=== PATIENT | female | born 2000 | race Caucasian/White ===

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

== ENCOUNTER 2021-11-14 13:28 | Emergency (ER) | payer BC ==
[~2021-11-14] VITALS: Ht 157.5 cm; Wt 54.4 kg
[2021-11-14 13:40] VITALS: BP_SYST 123
--- NOTE | 2021-11-14 14:09 | NUR ---
Pt brought by self, A&Ox4, pt presents to ER with neck pain/ pt states she was reaching for an object and hit the neck with the corner of a vanity skin pink and warm, cap refill <3,
--- NOTE | 2021-11-14 14:27 | NUR ---
Dr Ramirez evaluating patient in the triage room
[2021-11-14 15:38] VITALS: BP_SYST 124
--- NOTE | 2021-11-14 15:38 | NUR ---
Patient given written and verbal discharge instructions and verbalizes understanding. ER MD discussed with patient the results and treatment provided. Patient in stable condition. ID arm band removed. NO Rx given. Patient educated on pain management and to follow up with PMD. Pain Scale 0/10. Opportunity for questions provided and answered. Medication side effect fact sheet provided.
== END 2021-11-14 15:38 | disposition home or self-care (01) ==
LOC: SED 13:28
DX: S09.90XA Unspecified injury of head, initial encounter (principal); W18.39XA Other fall on same level, initial encounter; Y93.89 Activity, other specified; Y92.89 Other specified places as the place of occurrence of the external cause; Y99.8 Other external cause status
CPT/HCPCS: 70450-TC; 76376; 99284

== ENCOUNTER 2023-06-08 16:17 | Emergency (ER) | payer BC ==
[~2023-06-08] VITALS: Ht 162.6 cm; Wt 57.2 kg
[2023-06-08 16:25] VITALS: BP_SYST 144; PULSE 85; RESP 18; TEMP 98.3; O2SAT 98
[2023-06-08 17:02] LABS: BASOPHILS % (AUTO) 0.2 % (0.0-2.0); EOSINOPHILS % (AUTO) 0.7 % (0.0-4.0); HEMATOCRIT 39.6 % (36-48); HEMOGLOBIN 12.8 g/dL (12.0-16.0); LYMPHOCYTES # (AUTO) 1.3 K/uL (1.0-5.5); LYMPHOCYTES % (AUTO) 23.9 % (20.5-51.5); MEAN CORPUSCULAR HEMOGLOBIN 27 pg (27-31); MEAN CORPUSCULAR HGB CONC 32 % (32-36); MEAN CORPUSCULAR VOLUME 84 fL (79.0-98.0); MONOCYTES # (AUTO) 0.6 K/uL (0.0-1.0); MONOCYTES % (AUTO) 11.4 % (1.7-9.3); NEUTROPHILS # (AUTO) 3.4 K/uL (1.8-7.7); NEUTROPHILS % (AUTO) 63.8 % (40.0-70.0); PLATELET COUNT (AUTO) 255 K/uL (130-430); RED BLOOD CELL COUNT(AUTO) 4.74 MIL/uL (4.2-6.2); RED CELL DISTRIBUTION WIDTH 15.2 % (9.0-15.0); WHITE BLOOD COUNT (AUTO) 5.4 K/uL (4.8-10.8)
[2023-06-08 17:25] LABS: ALBUMIN 3.5 g/dL (3.4-4.8); CALCIUM 9.2 mg/dL (8.4-11.0); CREATININE 0.8 mg/dL (0.55-1.30); POTASSIUM 3.5 mmol/L (3.5-5.1); TOTAL PROTEIN, SERUM 7.1 g/dL (6.4-8.3)
[2023-06-08 17:50] LABS: BILIRUBIN,URINE NEGATIVE (NEGATIVE); CLARITY/URINE CLEAR (CLEAR); COLOR,URINE YELLOW (YELLOW); GLUCOSE,URINE NEGATIVE (NEGATIVE); KETONES,URINE NEGATIVE (NEGATIVE); LEUKOCYTE ESTERASE ,URINE NEGATIVE (NEGATIVE); NITRITE, URINE NEGATIVE (NEGATIVE); PROTEIN URINE NEGATIVE (NEGATIVE); UROBILINOGEN,URINE 0.2 (0.2-1.0)
[2023-06-08 17:51] LABS: BLOOD, URINE TRACE (NEGATIVE)
[2023-06-08 18:11] LABS: BACTERIA,URINE RARE /HPF (None Seen); MUCUS,URINE 1+ /LPF (None Seen); RBC,URINE 0-3 /HPF (0-3); WBC,URINE NONE SEEN /HPF (0-3)
[2023-06-08] MEDS ORDERED: MAG HYDROX/AL HYDROX/SIMETH 30 ML, DICYCLOMINE HCL 20 MG, LIDOCAINE VISCOUS 2% 15ML (PO... PO ONE ×3 (18:15)
[2023-06-08 19:45] VITALS: BP_SYST 124; PULSE 86; RESP 18; TEMP 98.3; O2SAT 97
== END 2023-06-08 19:45 | disposition home or self-care (01) ==
LOC: SED 16:17
DX: R10.13 Epigastric pain (principal); R10.11 Right upper quadrant pain; R11.10 Vomiting, unspecified; Z88.8 Allergy status to other drugs, medicaments and biological substances; Z79.899 Other long term (current) drug therapy
CPT/HCPCS: 99284; 76700; 80053; 81000; 81001; 83690; 85025; 36415; 81025; 81015; J2001